=== PATIENT | female | born 1980 | race Caucasian/White ===

== ENCOUNTER 2022-11-04 08:57 | Emergency (ER) | payer MEDICARE, MEDICAID, SELFPAY ==
[2022-11-04] VITALS (14 sets, daily range): BP systolic 113–139; BP diastolic 65–96; PULSE 63–90; RESP 12–21; TEMP 36.4; O2SAT 97–99
--- NOTE | ~2022-11-04 | XR_ITS ---
EXAMINATION: XR chest 2V DATE: 11/04/2022 09:36 INDICATION: Shortness of breath TECHNIQUE: PA and lateral views of the chest are obtained. COMPARISON: None available FINDINGS: The lungs are free of acute opacities. No pleural effusion or pneumothorax. The cardiomedia stinal silhouette is normal. There are surgical changes of the cervical spine. The visualized bones a nd soft tissues are otherwise unremarkable. IMPRESSION: 1. No acute cardiopulmonary abnormality. Reviewed, dictated and finalized at location A.
--- NOTE | ~2022-11-04 | CT_ITS ---
EXAMINATION: CT brain wo con INDICATION: Head injury COMPARISON: None TECHNIQUE: Standard unenhanced head CT. The dose-length product (DLP) was 529.67 mGy-cm. The mA was a djusted according to patient size. Iterative reconstruction technique was employed. FINDINGS: No intracranial hemorrhage, acute infarction, or abnormal mass lesion. The ventricles are n ormal. No abnormal mass effect or midline shift. The romano-white matter differentiation is normal. The basal cisterns are patent. The orbits are normal. There is mild mucosal thickening of the paranasal sinuses. IMPRESSION: 1. No acute intracranial abnormality. Reviewed, dictated and finalized at location A.
--- NOTE | 2022-11-04 08:58 | ECG_ITS ---
Measurements Intervals [place] Rate: 92 P: 78 OR: 174 QRS: 87 QRSD: 90 T: -31 QT: 353 QTc: 437 Interpretive Statements SINUS RHYTHM WITH SINUS ARRHYTHMIA POSSIBLE RIGHT ATRIAL ENLARGEMENT INCOMPLETE RIGHT BUNDLE BRANCH BLOCK ST-T WAVE ABNORMALITY IN INFERIOR LEADS- CONSIDER ISCHEMIA BASELINE ARTIFACT- I, III, AVR, AVL ABNORMAL ECG NO PREVIOUS ECG AVAILABLE FOR COMPARISON Electronically Signed On 11-04-2022 16:36:41 CDT by Gian Manuel D.O.
[2022-11-04 09:31] LABS: Basophils Absolute Auto 0.1 K/mm3 (0.0-0.1); Basophils Percent Auto 0.6 % (0.2-1.2); Eosinophils Absolute Auto 0.2 K/mm3 (0-0.3); Hematocrit 37.1 % (37.0-47.0); Hemoglobin 12.6 g/dL (12.0-15.0); Immature Granulocyte Absolute 0.03 K/mm3 (0.00-0.031); Immature Granulocyte Percent A 0.3 % (0-0.5); Lymphocytes Absolute Auto 1.66 K/mm3 (0.9-3.2); Lymphocytes Percent Auto 19.1 % (18.3-44.2); Mean Corpuscular Hemoglobin 31.3 pg (26-34); Mean Corpuscular Volume 92.3 fl (80-100); Mean Platelet Volume 10.3 fl (7.4-10.4); Monocytes Absolute Auto 0.4 K/mm3 (0.1-0.6); Monocytes Percent Auto 5.1 % (2.6-8.5); Neutrophils Absolute Auto 6.3 K/mm3 (1.3-6.7); Neutrophils Percent Auto 72.9 % (45.5-73.1); Platelet Count Result 199 k/mm3 (150-375); Red Blood Count 4.02 M/mm3 (4.2-5.4); Red Cell Distribution Width 11.9 % (11.5-14.5); White Blood Count 8.7 K/mm3 (4.5-10.0)
[2022-11-04 09:42] LABS: Alanine Aminotransferase 16 U/L (6-35); Alkaline Phosphatase 72 U/L (38-126); Anion Gap 6 mmol/L (8-16); Aspartate Amino Transferase 23 U/L (14-36); Bilirubin,Total 0.3 mg/dL (0.2-1.3); Blood Urea Nitrogen 16 mg/dL (7-17); Calcium 9.4 mg/dL (8.4-10.2); Carbon Dioxide 26 mmol/L (22-30); Chloride 105 mmol/L (98-107); Estimated CRCL calculation 52 ml/min; Estimated Glomerular Filt Rate 60; Glucose 121 mg/dL (65-110); Potassium 4.3 mmol/L (3.4-5.0); Sodium 137 mmol/L (137-145)
[2022-11-04 09:52] LABS: Troponin I < 0.012 ng/mL (0.000-0.034)
[2022-11-04] MEDS: ALBUTEROL SULFATE NEB 2.5 MG/3 ML INH 10 MG INHALATION (09:57)
[2022-11-04] MEDS: IPRATROPIUM BR 0.02% INH SOLN 0.5 MG/2.5 ML VIAL 1 MG INHALATION (09:57)
--- NOTE | 2022-11-04 12:39 | ED.SOB ---
HPI - SOB/Dyspnea General Chief Complaint: Shortness of Breath/Dyspnea Stated Complaint: difficulty breathing Time Seen by Provider: 11/04/22 09:19 History of Present Illness HPI Narrative: Patient is a 42-year-old female who presents ER with difficulty breathing. Worsening over last couple days. Began initially after she had a seizure at home where her son thought she was and performed chest compressions. EMS then arrived and put Narcan down her airway. She denies any opiate use. She thinks she could have potentially aspirated. No fevers or chills or sweats. No productive cough. She does have some minor discomfort to her chest from the resuscitative efforts. She also reports that she has some blurriness in her left eye for the last 2 days since having her seizure. No flashers or floaters. No dark black. Related Data Allergies Allergy/AdvReac Type Severity Reaction Status Date / Time No Known Allergies Allergy Unverified 11/04/22 09:21 Review of Systems Review of Systems: All systems reviewed & are unremarkable except as noted in HPI and below Constitutional: Constitutional: Denies chills, Denies fatigue and Denies fever(s) ENT: Denies nasal congestion and Denies sore throat Cardiovascular: Cardiovascular: Reports chest pain, Denies rapid heart rate and Denies radiating jaw, neck or arm pain Respiratory: Respiratory: Reports cough, Reports dyspnea and Reports wheezing Gastrointestinal: Gastrointestinal: Denies abdominal pain, Denies nausea and Denies vomiting PMFSH Past Medical History Medical History (Updated 11/04/22 @ 17:17 by Rai Short MD) Anxiety GERD (gastroesophageal reflux disease) Seizures Anxiety induced Surgical History Surgical History (Updated 11/04/22 @ 17:17 by Rai Short MD) No pertinent past surgical history Exam Narrative: GENERAL: Well-appearing, well-nourished, and in no acute distress. HEAD: Normocephalic, atraumatic. EYES: PERRLA and EOMI. ENT: Mucous membranes moist. CHEST: Coarse wheezing bilaterally. No respiratory distress. HEART: Regular rate and rhythm. Normal peripheral pulses. ABDOMEN: Soft, nontender, nondistended. EXTREMITIES: Normal range of motion. No edema. SKIN: Warm, dry, no rash. NEURO: Alert and oriented x3. PSYCH: Normal mood and affect. Course Course Emergency Course: Patient resting comfortably. Lab work unremarkable. Patient received hour-long breathing treatment with improvement of lung sounds. No hypoxia. Patient reports spontaneous improvement of vision in left eye. Discharge home with prednisone and albuterol. Vital Signs Vital signs: Vital Signs Temperature 97.6 F 11/04/22 09:13 Pulse Rate 90 11/04/22 09:13 Respiratory Rate 20 11/04/22 09:13 Blood Pressure 113/85 11/04/22 09:13 Pulse Oximetry 97 11/04/22 09:13 Oxygen Delivery Room Air 11/04/22 09:13 Temperature 97.6 F 11/04/22 09:13 Pulse Rate 80 11/04/22 13:24 Respiratory Rate 16 11/04/22 13:24 Blood Pressure 127/96 H 11/04/22 13:24 Pulse Oximetry 99 11/04/22 13:24 Oxygen Delivery Room Air 11/04/22 09:24 MDM - SOB/Dyspnea Lab Data 11/04/22 09:24 11/04/22 09:24 Labs: Lab Results 11/04/22 Range/Units 09:24 WBC 8.7 (4.5-10.0) K/mm3 RBC 4.02 L (4.2-5.4) M/mm3 Hgb 12.6 (12.0-15.0) g/dL Hct 37.1 (37.0-47.0) % MCV 92.3 (80-100) fl MCH 31.3 (26-34) pg MCHC 34.0 (32-36) g/dl RDW 11.9 (11.5-14.5) % Plt Count 199 (150-375) k/mm3 MPV 10.3 (7.4-10.4) fl Immature Gran % (Auto) 0.3 (0-0.5) % Neut % (Auto) 72.9 (45.5-73.1) % Lymph % (Auto) 19.1 (18.3-44.2) % [facility] % (Auto) 5.1 (2.6-8.5) % Eos % (Auto) 2.0 (0-4.4) % Baso % (Auto) 0.6 (0.2-1.2) % Lymph # (Auto) 1.66 (0.9-3.2) K/mm3 [facility] # (Auto) 0.4 (0.1-0.6) K/mm3 Eos # (Auto) 0.2 (0-0.3) K/mm3 Baso # (Auto) 0.1 (0.0-0.1) K/mm3 Abs Immat Gran (auto) 0.03 (0.00-0.
== END 2022-11-04 13:25 | disposition home or self-care (01) ==
PROVIDERS: Emergency Provider Emergency Medicine
DX: J40 Bronchitis, not specified as acute or chronic (principal); K21.9 Gastro-esophageal reflux disease without esophagitis; I45.10 Unspecified right bundle-branch block; R94.31 Abnormal electrocardiogram [ECG] [EKG]
CPT/HCPCS: 36415; 70450; 71046; 80053; 84484; 85025; 93005; 94640; 99284